=== PATIENT | male | born 1945 | race Caucasian/White ===

== ENCOUNTER 2016-12-15 08:19 | Day surgery (SDC) | payer OTHER, MEDICARE ==
[~2016-12-15 08:19] MED LIST: Lactated Ringers 1,000 ML IV SCH; Sodium Chloride 0.9% 10 ML Syringe FLUSH PRN
[2016-12-15] MEDS ORDERED: fentaNYL 100 MCG/2 ML SDV ONE (10:05)
[2016-12-15] MEDS ORDERED: Propofol 200 MG/20 ML SDV ONE (10:05)
[2016-12-15 11:15] VITALS: BP 140/84
--- NOTE | 2016-12-15 18:12 | OR ---
PREOPERATIVE DIAGNOSIS: Screening colonoscopy. POSTOPERATIVE DIAGNOSIS: Colonic polyps x2. PROCEDURE PROPOSED: Total flexible colonoscopy. PROCEDURE DONE: Total flexible colonoscopy with polypectomy x2. INDICATION: This is a 71-year-old gentleman who was referred for colonoscopic exam for screening purposes. He denies any symptomatology and he has a negative family history for colon cancer. TECHNIQUE: The patient was brought to the endoscopy suite, placed in left lateral decubitus position. He was sedated per [employer] with propofol. The flexible video colonoscope was then passed transanally and under visualization was advanced to the cecum. Examination revealed a normal ascending colon. In the transverse colon, at about 80 cm, 2 polyps were found and removed by hot snare technique and retrieved with suction. The remainder of the exam of the descending, sigmoid, and rectal colon was essentially normal. There was no evidence of any diverticulosis or colitis or other abnormalities. The scope was then withdrawn. The patient tolerated the procedure well. FINAL IMPRESSION: Colonic polyps x2, removed. PLAN: He will be sent a letter with pathology report. I felt that he should continue with colonic surveillance every 5 years hereafter for a couple of more exams. SCM: 12/15/2016 11:13:33 MODL: 12/15/2016 12:33:09 /[id number]
--- NOTE | 2016-12-28 11:48 | LETTER ---
12/27/2016 Johnny Chiang RE: JOHNNY CHIANG : 1945 Dear Johnny, The polyps removed from your colon were benign. One was considered a precancerous type polyp and the other was a hyperplastic polyp. Because of this finding, I feel that you should have your colon evaluated every 5 years for the next couple scopes to make sure you have not formed any new polyps. If you have any further questions regarding this, feel free to call. Respectfully,
== END 2016-12-15 12:20 | disposition home or self-care (01) ==
LOC: VM.SDS 08:19
PROVIDERS: ATTEND Surgery
DX: Z12.11 Encounter for screening for malignant neoplasm of colon (principal); D12.3 Benign neoplasm of transverse colon; K63.5 Polyp of colon; Z98.41 Cataract extraction status, right eye; Z98.42 Cataract extraction status, left eye
CPT/HCPCS: 45385; J2704; J3010; J7120

== ENCOUNTER 2022-03-04 12:51 | Emergency (ER) | payer MEDICARE, OTHER ==
[2022-03-04 13:55] LABS: CHLORIDE,CL 101 mmol/L (98-107); SODIUM,NA 136 mmol/L (136-145)
[2022-03-04 13:58] LABS: ANION GAP 8.5 mmol/L (5-15); ESTIMATED GFR 70 mL/min (>=60)
[2022-03-04 14:20] LABS: CORONAVIRUS COVID-19 NAA NEGATIVE (NEGATIVE)
[2022-03-04 14:27] VITALS: BP 120/60; PULSE 68
== END 2022-03-04 14:44 | disposition home or self-care (01) ==
LOC: VM.ED 12:51
DX: R55 Syncope and collapse (principal); Z20.822 Contact with and (suspected) exposure to COVID-19; Z79.899 Other long term (current) drug therapy
CPT/HCPCS: 0240U; 36415; 70450; 71046; 80053; 81003; 82550; 83615; 84484; 85025; 85379; 86140; 93005; 93010; 99284; 99285

== ENCOUNTER 2022-12-31 08:00 | Day surgery (SDC) | payer MEDICARE, OTHER ==
[2022-12-31] MEDS: Lactated Ringers 1,000 ML IV SCH (08:14)
[2022-12-31] MEDS ORDERED: fentaNYL 100 MCG/2 ML SDV ONE (10:07)
[2022-12-31] MEDS ORDERED: Midazolam 1 MG/ML 2 ML SDV ONE (10:07)
[2022-12-31] MEDS ORDERED: Propofol 200 MG/20 ML SDV ONE (10:07)
[2022-12-31 11:59] VITALS: BP 141/82; PULSE 71
== END 2022-12-31 12:09 | disposition home or self-care (01) ==
LOC: VM.SDS 08:00
PROVIDERS: ATTEND Student in an Organized Health Care Education/Training Program
DX: Z12.11 Encounter for screening for malignant neoplasm of colon (principal); D12.2 Benign neoplasm of ascending colon; K63.5 Polyp of colon; N40.1 Benign prostatic hyperplasia with lower urinary tract symptoms; N13.8 Other obstructive and reflux uropathy; I10 Essential (primary) hypertension; E78.00 Pure hypercholesterolemia, unspecified; N52.9 Male erectile dysfunction, unspecified; F32.A Depression, unspecified; Z79.899 Other long term (current) drug therapy
CPT/HCPCS: 00811; J2250; J2704; J3010; J7120